=== PATIENT | female | born 1990 | race Caucasian/White ===

== ENCOUNTER → 2018-01-25 | Outpatient (CLI) | payer OTHER ==
[2018-01-26 10:01] LABS: Source CERVICAL
== END ==
LOC: LAB 17:27
PROVIDERS: Registered Nurse Community Health
DX: Z12.4 Encounter for screening for malignant neoplasm of cervix (principal)
CPT/HCPCS: G0123

== ENCOUNTER → 2019-06-24 | Outpatient (CLI) | payer OTHER | END | disposition home or self-care (01) | LOC: LAB SHORT 19:31 → LAB 19:31 | DX: E03.9 Hypothyroidism, unspecified (principal) | CPT/HCPCS: 84443 ==

== ENCOUNTER 2021-02-15 07:00 | Day surgery (SDC) | payer OTHER ==
[~2021-02-15] VITALS: Ht 160 cm; Wt 113.3 kg
[~2021-02-15 07:00] MED LIST: BUPR75 PO; CYCLOBENZAPRINE5 MG PO; ESTARYLLA 0.251 EACH PO; LEVSOD100 PO; PROP80ER PO; Pravachol40 MG PO; VENL150ER PO; VITAMIN D325 MC3 PO
[2021-02-15] MEDS ORDERED: OMEP20ER PO (07:55)
[2021-02-15] MEDS ORDERED: TRAZ50 PO (07:55)
[2021-06-09] MEDS ORDERED: Pravastatin Sod80 MG PO (05:15)
[2021-06-09] MEDS ORDERED: FAMO20 PO (05:15)
[2021-06-09] MEDS ORDERED: ESCITALOPRAM OXA5 MG PO (05:15)
[2021-06-09] MEDS ORDERED: TRAM50 PO (07:47)
== END 2021-02-15 11:26 | disposition home or self-care (01) ==
LOC: ORSCSDS 07:00
PROVIDERS: Obstetrics & Gynecology
PROC: 0UT74ZZ Resection of Bilateral Fallopian Tubes, Percutaneous Endoscopic Approach (ICD-10-PCS; principal; 2021-02-15 08:30)
PROC: 0U5F4ZZ Destruction of Cul-de-sac, Percutaneous Endoscopic Approach (ICD-10-PCS; principal; 2021-02-15 08:30)
DX: Z30.2 Encounter for sterilization (principal); Q50.5 Embryonic cyst of broad ligament; N73.6 Female pelvic peritoneal adhesions (postinfective); J45.909 Unspecified asthma, uncomplicated; K21.9 Gastro-esophageal reflux disease without esophagitis; E03.9 Hypothyroidism, unspecified; E66.01 Morbid (severe) obesity due to excess calories; Z68.41 Body mass index [BMI] 40.0-44.9, adult; Z79.899 Other long term (current) drug therapy
CPT/HCPCS: 88302; A9270; J0171; J0690; J1100; J1885; J2250; J2405; J2704; J2765; J3010

== ENCOUNTER → 2021-06-13 | Outpatient (CLI) | payer OTHER ==
[~2021-06-13] MED LIST changes: +ESCITALOPRAM OXA5 MG PO; +FAMO20 PO; +OMEP20ER PO; +Pravastatin Sod80 MG PO; +TRAM50 PO; +TRAZ50 PO
[2021-06-17 13:08] LABS: HPV 16 Negative (Negative); HPV 18 Negative (Negative); HPV OTHER HR TYPES Negative (Negative)
== END ==
LOC: LAB 19:11 → LAB SHORT 19:11
PROVIDERS: Registered Nurse Community Health
DX: Z12.4 Encounter for screening for malignant neoplasm of cervix (principal); Z88.1 Allergy status to other antibiotic agents
CPT/HCPCS: 87624; G0123

== ENCOUNTER → 2021-07-17 | Outpatient (CLI) | payer OTHER | END | disposition home or self-care (01) | LOC: LAB 09:40 → LAB SHORT 09:40 | DX: E03.9 Hypothyroidism, unspecified (principal) | CPT/HCPCS: 84443 ==

== ENCOUNTER → 2021-09-30 | Outpatient (CLI) | payer OTHER ==
[2021-09-30 17:45] LABS: Very Low Density Lipoprot Chol 19 mg/dL (6-28)
[2021-09-30 17:54] LABS: CHOL/HDL RATIO 2.9; Cholesterol 176 mg/dL (50-200); HDL Cholesterol 61 mg/dL (>39); LDL/HDL RATIO 1.6; Low Density Lipoprotein Chol 96 mg/dL (0-110); Triglycerides 97 mg/dL (30-140)
== END | disposition home or self-care (01) ==
LOC: LAB SHORT 13:15
PROVIDERS: Family Medicine
DX: E03.9 Hypothyroidism, unspecified (principal); E78.00 Pure hypercholesterolemia, unspecified
CPT/HCPCS: 80061; 84443

== ENCOUNTER → 2022-06-26 | Outpatient (CLI) | payer OTHER ==
[2022-06-26 20:00] LABS: Microalb/Creat Ratio UR, Rand 5.719 mg/g (0.000-30.000); Microalbumin, Random Urine 9.55 mg/L (0.000-20.000)
== END | disposition home or self-care (01) ==
LOC: LAB SHORT 12:00 → LAB 12:00
PROVIDERS: Family Medicine
DX: E88.09 Other disorders of plasma-protein metabolism, not elsewhere classified (principal)
CPT/HCPCS: 82043; 82570

== ENCOUNTER → 2023-02-05 | Outpatient (CLI) | payer OTHER ==
[~2023-02-05] MED LIST changes: +Ativan1 MG PO
== END | disposition home or self-care (01) ==
LOC: LAB 13:53 → LAB SHORT 13:53
DX: E03.9 Hypothyroidism, unspecified (principal); E66.9 Obesity, unspecified
CPT/HCPCS: 83036; 84443

== ENCOUNTER → 2023-04-22 | Outpatient (CLI) | payer OTHER | END | disposition home or self-care (01) | LOC: LAB 16:54 → LAB SHORT 16:54 | DX: E03.9 Hypothyroidism, unspecified (principal) | CPT/HCPCS: 84443 ==

== ENCOUNTER → 2023-05-28 | Outpatient (CLI) | payer OTHER ==
[2023-05-28 18:00] LABS: Alanine Aminotransfer (ALT/SGP 45 U/L (12-78); Albumin, Blood 3.1 g/dL (3.4-5.0); Albumin/Globulin Ratio 0.7 (0.8-1.8); Alk Phos 69 U/L (50-136); Anion Gap 8 mmol/L (6-16); Aspartate Aminotrans (AST/SGOT 33 U/L (12-37); Bilirubin, Total 0.3 mg/dL (0.1-1.0); Blood Urea Nitrogen 11 mg/dL (8-24); Bun/Creatinine Ratio 14.3 (12.0-20.0); CHOL/HDL RATIO 4.2; CO2, Blood 22 mmol/L (21-32); Calcium, Blood 9.1 mg/dL (8.5-10.1); Chloride, Blood 108 mmol/L (98-108); Cholesterol 247 mg/dL (50-200); Creatinine, Blood 0.77 mg/dL (0.40-1.00); Globulin, Blood 4.2 g/dL (2.2-4.0); Glomerular Filtration Rate 106 (60-); Glucose, Blood 83 mg/dL (70-99); HDL Cholesterol 59 mg/dL (>39); LDL/HDL RATIO 2.7; Low Density Lipoprotein Chol 162 mg/dL (0-110); Potassium, Blood 4.3 mmol/L (3.5-5.5); Sodium, Blood 138 mmol/L (136-145); Total Protein, Blood 7.3 g/dL (6.4-8.2); Triglycerides 129 mg/dL (30-140); Very Low Density Lipoprot Chol 25 mg/dL (6-28)
== END | disposition home or self-care (01) ==
LOC: LAB SHORT 13:18 → LAB 13:18
PROVIDERS: Family Medicine
DX: Z00.00 Encounter for general adult medical examination without abnormal findings (principal)
CPT/HCPCS: 80053; 80061

== ENCOUNTER 2023-07-16 07:08 | Day surgery (SDC) | payer OTHER ==
[~2023-07-16] VITALS: Ht 160 cm; Wt 104.0 kg
[~2023-07-16 07:08] MED LIST changes: +AUVELITY ER 451 EACH PO; +BUSPIRONE HCL30 M1 PO; +CENTRUM SILVER1 EAC2 PO; +GABA300 PO; +Hydroxyzine HCl25 MG PO; +Imitrex100 MG PO; +NORGESTIMATE-E1 EAC2 PO; +REXULTI1 MG PO; +Ventolin5 MG/1 ML INH
[2023-07-16 07:34] VITALS: BP 111/67
--- NOTE | 2023-07-16 08:04 | NUR ---
History, Chart, Medications and Allergies reviewed before start of procedure. Ambulatory in Day Surgery. Patient confirms NPO status and agrees with scheduled surgery. Pre-Op teaching done. Pt verbalizes understanding. Patient States Post-Procedure ride home has been arranged. Lungs clear T/O to Auscultation.
--- NOTE | 2023-07-16 08:11 | NUR ---
07/16/23 0811 Mehrdad Springer History, Chart, Medications and Allergies reviewed before start of procedure.MONITOR INTACT WITH CONTINUOUS PULSE OXIMETRY, CONTINUOUS END TITAL CO2, AND INTERMITTENT BLOOD PRESSURE.3-LEAD EKG REVIEWED WITH PHYSICIAN PRIOR TO START OF PROCEDURE.See Anesthesia record.
[2023-07-16 08:29] VITALS: BP 110/70
--- NOTE | 2023-07-16 08:31 | NUR ---
REPORT RECEIVED FROM GEOVANNI KIRKPATRICK RN. VSS. PT ABLE TO REPOSITION SELF IN BED. PT REQUESTING PO FLUIDS AND TOLERATING THEM WELL. PT DENIES PAIN, NAUSEA, OR OTHER DISCOMFORTS.
[2023-07-16 08:43] VITALS: BP 118/67
--- NOTE | 2023-07-16 08:52 | NUR ---
Patient up to Ambulate independently. Gait steady. VSS. Discharge instructions reviewed with patient. Patient verbalizes understanding. Copy given to patient to take home. Patient States Post-Procedure ride home has been arranged. Discharged via wheelchair to private car for ride home. PT BELONGINGS RETURNED TO PT.
== END 2023-07-16 08:55 | disposition home or self-care (01) ==
LOC: ORSCMMR 07:08 → ORD 08:00 → ORSCMMR 08:55
PROVIDERS: Internal Medicine Gastroenterology
PROC: 0DB48ZX Excision of Esophagogastric Junction, Via Natural or Artificial Opening Endoscopic, Diagnostic (ICD-10-PCS; principal; 2023-07-16 08:00)
PROC: 0DB68ZX Excision of Stomach, Via Natural or Artificial Opening Endoscopic, Diagnostic (ICD-10-PCS; principal; 2023-07-16 08:00)
PROC: 0DB58ZX Excision of Esophagus, Via Natural or Artificial Opening Endoscopic, Diagnostic (ICD-10-PCS; principal; 2023-07-16 08:00)
PROC: 0DB98ZX Excision of Duodenum, Via Natural or Artificial Opening Endoscopic, Diagnostic (ICD-10-PCS; principal; 2023-07-16 08:00)
DX: R10.13 Epigastric pain (principal); K29.70 Gastritis, unspecified, without bleeding; F41.1 Generalized anxiety disorder; E03.9 Hypothyroidism, unspecified; J45.909 Unspecified asthma, uncomplicated; E66.01 Morbid (severe) obesity due to excess calories; Z68.41 Body mass index [BMI] 40.0-44.9, adult; Z79.899 Other long term (current) drug therapy
CPT/HCPCS: 88305; 88342; J2001; J2250; J2704; J7120

== ENCOUNTER → 2023-10-09 | Outpatient (CLI) | payer OTHER ==
[2023-10-09 20:22] LABS: CHOL/HDL RATIO 4.4; Cholesterol 217 mg/dL (50-200); HDL Cholesterol 49 mg/dL (>39); Iron Serum 52 ug/dL (50-170); LDL/HDL RATIO 2.3; Low Density Lipoprotein Chol 113 mg/dL (0-110); Percent Saturation 13.6 % (15.0-50.0); Total Iron Binding Capacity 381 ug/dL (250-450); Triglycerides 275 mg/dL (30-140); Very Low Density Lipoprot Chol 55 mg/dL (6-28)
[2023-10-09 20:57] LABS: Ferritin, Serum 60 ng/mL (8-252)
== END | disposition home or self-care (01) ==
LOC: LAB 18:50 → LAB SHORT 18:50
PROVIDERS: Family Medicine
DX: E78.5 Hyperlipidemia, unspecified (principal); R42 Dizziness and giddiness
CPT/HCPCS: 80061; 82607; 82728; 82746; 83540; 83550

== ENCOUNTER → 2024-06-14 | Outpatient (CLI) | payer OTHER ==
[2024-06-14 19:04] LABS: Percent Saturation 26.1 % (15.0-50.0)
== END ==
LOC: LAB 16:35 → LAB SHORT 16:35
PROVIDERS: Family Medicine
DX: R25.2 Cramp and spasm (principal)
CPT/HCPCS: 82728; 83540; 83550

== ENCOUNTER 2025-04-28 11:56 | Emergency (ER) | payer OTHER ==
[~2025-04-28] VITALS: Ht 160 cm; Wt 104.3 kg
[~2025-04-28 11:56] MED LIST changes: +ALBU90OI INH; +ALBU90OI6 INH; +ARTHRITIS PAIN150 GM TOP; +Atarax10 MG PO; +Estrace Vagin42.5 GM VAG; +FISH OIL 1,0001 EA10 PO; -Hydroxyzine HCl25 MG PO; -LEVSOD100 PO; +LEVSOD112 PO; +MULTI-VITAMIN1 EAC2 PO; +MYRBETRIQ25 MG PO; +Methocarbamol500 MG PO; +PROMETHAZINE12.5 M6 PO; +Percocet 5-3251 EACH PO; +REXULTI0.5 MG PO; -REXULTI1 MG PO; +SIME80CH PO; +TRAZ100 PO; -TRAZ50 PO; -VITAMIN D325 MC3 PO; +VITAMIN D5000 UNIT PO; +Vitamin B Comple1 EA PO; +Vyvanse70 MG PO; +[UNRECOGNIZED DRUG - OTHER] BOTHEYES
[2025-04-28 12:15] VITALS: BP 152/77
== END 2025-04-28 12:21 | disposition home or self-care (01) ==
LOC: ER 11:56
DX: Z48.816 Encounter for surgical aftercare following surgery on the genitourinary system (principal); Z59.89 Other problems related to housing and economic circumstances; Z88.1 Allergy status to other antibiotic agents; Z79.899 Other long term (current) drug therapy; Z79.890 Hormone replacement therapy
CPT/HCPCS: 99283

== ENCOUNTER → 2025-08-18 | Outpatient (CLI) | payer OTHER ==
[2025-08-18 19:33] LABS: Campylobacter Sp Not Detected (NOT DETECT); Salmonella Sp Detected (NOT DETECT)
[2025-08-18 19:34] LABS: E. Coli O157 Not Detected (NOT DETECT); Enteroaggregative E. coli-EAEC Not Detected (NOT DETECT); Enteropathogenic E. coli-EPEC Not Detected (NOT DETECT); Enterotoxigenic E. coli-ETEC Not Detected (NOT DETECT); Shiga Toxin-prod E. coli-STEC Not Detected (NOT DETECT); Shigella/Enteroin E. coli-EIEC Not Detected (NOT DETECT); Vibrio Sp Not Detected (NOT DETECT)
[2025-08-23 10:35] LABS: OVA AND PARASITE,FECAL INTERP Negative (Negative)
== END ==
LOC: LAB 16:37 → LAB SHORT 16:37
PROVIDERS: Student in an Organized Health Care Education/Training Program
DX: R19.7 Diarrhea, unspecified (principal)
CPT/HCPCS: 87177; 87209; 87507